=== PATIENT | female | born 1970 | race Two or more races ===

== ENCOUNTER 2023-07-10 08:44 | Outpatient (CLI) | payer MEDICAID | END 2023-07-10 23:59 | disposition home or self-care (01) | LOC: RAD 08:44 | PROVIDERS: ATTEND Student in an Organized Health Care Education/Training Program | DX: K76.0 Fatty (change of) liver, not elsewhere classified (principal); R16.0 Hepatomegaly, not elsewhere classified; R10.11 Right upper quadrant pain | CPT/HCPCS: 76700 ==

== ENCOUNTER 2024-01-29 15:19 | Emergency (ER) | payer MEDICAID ==
[~2024-01-29] VITALS: Ht 157.5 cm; Wt 84.1 kg
[2024-01-29 15:24] VITALS: BP 172/95; PULSE 85; TEMP 98; O2SAT 96
[2024-01-29] MEDS ORDERED: TRAM50TA2 PO (17:03)
[2024-01-29 17:04] VITALS: RESP 18
[2024-01-29] MEDS: traMADol 50MG tablet PO ONE (17:04)
== END 2024-01-29 17:10 | disposition home or self-care (01) ==
LOC: ER 15:20
DX: M25.561 Pain in right knee (principal); Z79.899 Other long term (current) drug therapy; W19.XXXA Unspecified fall, initial encounter; Y93.89 Activity, other specified; Y92.89 Other specified places as the place of occurrence of the external cause; Y99.8 Other external cause status
CPT/HCPCS: 73564; 99284

== ENCOUNTER 2025-05-01 08:52 | Outpatient (CLI) | payer MEDICAID ==
--- NOTE | 2025-05-01 10:31 | RADIOLOGY REPORT ---
INDICATION: RIGHT UPPER QUADRANT PAIN, CONCERN FOR GALLBLADDER TECHNIQUE: Multiple real-time sonographic images were obtained of the right upper quadrant. COMPARISON: US ULTRASOUND OF ABDOMEN on DOS: 07/10/23 FINDINGS: The liver demonstrates homogenous echotexture without focal mass lesions. There is a gallbl adder polyp measuring 1 mm. The liver measures 15 cm. There is no intrahepatic or extrahepatic ducta l dilatation. The common duct measures 2 mm. The gallbladder is without evidence of stone or sludge. The gallbladder wall measures 1 mm and is wi thin normal limits. The right kidney measures 11.0 cm. The right kidney is normal in contour, size, and shape. The echog enicity is normal. There is no hydronephrosis. The pancreas is not well visualized due to overlying bowel gas. IMPRESSION: No sonographic evidence of gallstones or acute cholecystitis. Gallbladder polyp measuring 1 mm.
== END 2025-05-01 23:59 | disposition home or self-care (01) ==
LOC: RAD 08:52
PROVIDERS: ATTEND Student in an Organized Health Care Education/Training Program
DX: R10.11 Right upper quadrant pain (principal)
CPT/HCPCS: 76700